=== PATIENT | female | born 1960 | race Caucasian/White ===

== ENCOUNTER 2019-09-13 11:06 | Emergency (ER) | payer OTHER ==
[~2019-09-13] VITALS: Ht 165.1 cm; Wt 52.2 kg
[2019-09-13] MEDS ORDERED: Percocet 5-3251 EACH PO (12:59)
[2019-09-13] MEDS ORDERED: CYCL10 PO (12:59)
== END 2019-09-13 13:21 | disposition home or self-care (01) ==
LOC: ER 11:06
DX: S16.1XXA Strain of muscle, fascia and tendon at neck level, initial encounter (principal); S40.012A Contusion of left shoulder, initial encounter; Z88.0 Allergy status to penicillin; Z88.5 Allergy status to narcotic agent; F17.200 Nicotine dependence, unspecified, uncomplicated; W01.0XXA Fall on same level from slipping, tripping and stumbling without subsequent striking against object, initial encounter
CPT/HCPCS: 72040; 73000; 73030; 99285-25

== ENCOUNTER 2024-05-29 13:24 | Inpatient (IN) | payer SELFPAY ==
[~2024-05-29] VITALS: Ht 165.1 cm; Wt 48.0 kg
[~2024-05-29 13:24] MED LIST: CYCL10 PO; Percocet 5-3251 EACH PO
[2024-05-29 14:07] LABS: BASOPHILS ABSOLUTE AUTO 0.04 K/mm3 (0.00-0.23); BASOPHILS PERCENT AUTO 1 % (0-2); EOSINOPHILS ABSOLUTE AUTO 0.02 K/mm3 (0.00-0.68); EOSINOPHILS PERCENT AUTO 0 % (0-6); Hematocrit 41.7 % (33.0-51.0); Hemoglobin 13.6 g/dL (11.5-16.0); IMMATURE GRAN ABSOLUTE AUTO 0.03 K/mm3 (0.00-0.10); IMMATURE GRAN PERCENT AUTO 0 % (0-1); LYMPHOCYTES ABSOLUTE AUTO 2.08 K/mm3 (0.84-5.20); LYMPHOCYTES PERCENT AUTO 24 % (21-46); MONOCYTES ABSOLUTE AUTO 0.47 K/mm3 (0.16-1.47); MONOCYTES PERCENT AUTO 6 % (4-13); Mean Corpuscular HGB 31.3 pg (26.0-34.0); Mean Corpuscular HGB Conc 32.6 g/dL (31.5-36.5); Mean Corpuscular Volume 96 fL (80-100); Mean Platelet Volume 9.7 fL (9.1-12.4); NEUTROPHILS ABSOLUTE AUTO 5.93 K/mm3 (1.96-9.15); NEUTROPHILS PERCENT AUTO 69 % (41-73); Platelet Count 322 K/mm3 (150-400); RDW Coefficient Variation 13.3 % (11.7-14.2); RDW Standard Deviation 46.4 fL (35.1-46.3); Red Blood Cell Count 4.35 M/mm3 (3.80-5.20); White Blood Cell Count 8.57 K/mm3 (4.00-11.30)
[2024-05-29 14:48] LABS: Albumin, Blood 3.1 g/dL (3.4-5.0); Albumin/Globulin Ratio 0.6 (0.8-1.8); Bilirubin, Total 0.6 mg/dL (0.1-1.0); Bun/Creatinine Ratio 19.2 (12.0-20.0); Calcium, Blood 8.5 mg/dL (8.5-10.1); Creatinine, Blood 0.68 mg/dL (0.40-1.00); Globulin, Blood 5.2 g/dL (2.2-4.0); Potassium, Blood 3.9 mmol/L (3.5-5.5); Total Protein, Blood 8.3 g/dL (6.4-8.2)
[2024-05-29 16:06] LABS: Influenza A, PCR NEGATIVE (NEGATIVE); Influenza B, PCR NEGATIVE (NEGATIVE); Resp Syncytial Virus, PCR NEGATIVE (NEGATIVE); SARS-Cov-2 (COVID-19) PCR, MMC NEGATIVE (NEGATIVE)
[2024-05-29] MEDS ORDERED: Furosemide 10 MG/ML 4ML Vial IV ONE (18:30)
[2024-05-29] MEDS ORDERED: Ondansetron HCl 2 MG / ML 2ML Vial IV PRN (18:30)
[2024-05-29] MEDS ORDERED: FLU VACC TS2024-25(6MOS UP)/PF 45 MCG/0.5 ML SYRINGE IM SCH (18:30)
[2024-05-29 20:18] VITALS: BP 144/79
[2024-05-29] MEDS ORDERED: Acetaminophen 500 MG Tab PO PRN (22:05)
[2024-05-30] VITALS (7 sets, daily range): BP systolic 115–162; BP diastolic 86–97
[2024-05-30] MEDS ORDERED: Melatonin 5 MG Tablet PO PRN (01:35)
--- NOTE | 2024-05-30 04:27 | NUR ---
PT ADMITTED FROM ED WITH NEW ONSET CHF. L/S DIMINISHED IN LOWER BASES, O2 SATS IN LOW 90'S ON RA. B/P WAS ELEVATED, BUT NOW WNL. TELE IS NSR IN 90'S. RECIEVED IVP LASIX IN ED AND HAD ABOVE AVERAGE UOP. AWAITING ECHO, AND STRESS TEST THIS AM. PAIN NOTED IN LEFT BREAST TO AROUND SIDE, THIS HAS BEEN HAPPENING FOR AWHILE SHE STATES, TYLENOL ADMINISTERED AND KPAD SET UP.
[2024-05-30 06:56] LABS: Anion Gap 8 mmol/L (3-11); Blood Urea Nitrogen 22 mg/dL (8-24); Bun/Creatinine Ratio 31.8 (12.0-20.0); CHOL/HDL RATIO 4.9; CO2, Blood 28 mmol/L (21-32); Calcium, Blood 8.4 mg/dL (8.5-10.1); Chloride, Blood 106 mmol/L (98-108); Cholesterol 190 mg/dL (50-200); Creatinine, Blood 0.69 mg/dL (0.40-1.00); Glomerular Filtration Rate 97 (60-); Glucose, Blood 99 mg/dL (70-99); HDL Cholesterol 39 mg/dL (>39); LDL/HDL RATIO 3.1; Low Density Lipoprotein Chol 123 mg/dL (0-110); Magnesium, Blood 2.1 mg/dL (1.6-2.4); Potassium, Blood 3.5 mmol/L (3.5-5.5); Sodium, Blood 138 mmol/L (136-145); Triglycerides 142 mg/dL (30-160); Very Low Density Lipoprot Chol 28 mg/dL (6-32)
[2024-05-30] MEDS ORDERED: Furosemide 10 MG/ML 4ML Vial IV SCH (09:00)
[2024-05-30] MEDS ORDERED: Enoxaparin 40 MG/0.4 ML SYR SC SCH (09:00)
[2024-05-30] MEDS ORDERED: Metoprolol Tartrate 25 MG Tab PO SCH (10:00)
[2024-05-30] MEDS ORDERED: HYDROcodone 5-APAP 325 TAB PO ONE (10:20)
--- NOTE | 2024-05-30 10:47 | NUR ---
AT 1036 THIS RN RECIEVED CALL FROM [employer] NOTIFYING RN PT HAD A 6 BEAT RUN OF ACCELERATED IDIOVENTRICULAR. PT DENIES FEELING ANY WORSENING CHEST PAIN/PRESSURE FROM WHAT SHE HAS BEEN EXPERIENCING. PT BP 140/90. SHE DENIES HEART PALPITATIONS, SOB, OR ANY OTHER DISTRESS. AT APPROX 1045 THIS RN RECHECKED TELE STRIP AND PT RETURNED TO SINUS RHYTHM @ 84. THIS RN ATTEMPTED TO NOTIFY PROVIDER BUT NO ANSWER, PROVIDER NOT IN USUAL OFFICE WHEN RN ATTEMPTED TO VERBALLY UPDATE.
[2024-05-30 14:27] LABS: Source, Urine Clean Catch
[2024-05-30 14:37] LABS: Appearance, Urine Clear (Clear); Bilirubin, Urine Neg (Neg); Blood, Urine 1+ (Neg); Color, Urine Yellow (P-Yellow); Glucose Qualitative, Urine Neg (Neg); Ketones, Urine Neg (Neg); Leukocyte Esterase, Urine 2+ (Neg); Nitrite, Urine Neg (Neg); Protein, Urine 3+ (Neg); Urobilinogen, Urine NORM (Normal)
[2024-05-30 14:48] LABS: White Blood Cells, Urine 25-50 /hpf (0-5)
[2024-05-30 14:49] LABS: Bacteria Few /hpf; Mucus Light (0-Heavy); Squamous Epithelial Cells Few /hpf (Few); Transitional Epithelial Cells Few /hpf (0-Rare)
[2024-05-30] MEDS ORDERED: HYDROcodone 5-APAP 325 TAB PO PRN (16:00)
--- NOTE | 2024-05-30 18:46 | NUR ---
SHIFT SUMMARY A/Ox4, REMAINS INDEPENDENT IN ROOM, ABLE TO MAKE NEEDS/CONCERNS KNOWN. VITALS STABLE, TELE IN PLACE - SR @ 84. REPORT OF 6 BEAT RUN OF ACCELERATED IDIOVENTRICULAR - EKG COMPLETED AND WNL. PT REPORTS NEW ONSET LEFT FLANK PAIN - UA c CULTURE COMPLETED AND SENT TO LAB. ECHO COMPLETED. NORCO 5/325 AVAILABLE Q6H FOR PAIN, EFFECTIVE IN MANAGING PT LEFT CHEST/BACK PAIN AND K PAD HELPS WITH L FLANK PAIN. FAIR APPETITE. PT CURRENTLY RESTING IN BED WITH BED IN LOWEST POSITION AND CALL LIGHT WITHIN REACH - PT USES CALL LIGHT APPROPRIATELY.
[2024-05-31] MEDS ORDERED: CefTRIAXone Sodium 1,000 MG in NS 100 ML IV SCH (00:19)
[2024-05-31] MEDS ORDERED: NS 250 ML IV PRN (00:25)
[2024-05-31 03:07] VITALS: BP 149/93
[2024-05-31 06:37] LABS: BASOPHILS ABSOLUTE AUTO 0.02 K/mm3 (0.00-0.23); BASOPHILS PERCENT AUTO 0 % (0-2); EOSINOPHILS ABSOLUTE AUTO 0.01 K/mm3 (0.00-0.68); EOSINOPHILS PERCENT AUTO 0 % (0-6); Hematocrit 43.2 % (33.0-51.0); Hemoglobin 14.1 g/dL (11.5-16.0); IMMATURE GRAN ABSOLUTE AUTO 0.03 K/mm3 (0.00-0.10); IMMATURE GRAN PERCENT AUTO 0 % (0-1); LYMPHOCYTES ABSOLUTE AUTO 1.75 K/mm3 (0.84-5.20); LYMPHOCYTES PERCENT AUTO 20 % (21-46); MONOCYTES ABSOLUTE AUTO 0.61 K/mm3 (0.16-1.47); MONOCYTES PERCENT AUTO 7 % (4-13); Mean Corpuscular HGB 30.6 pg (26.0-34.0); Mean Corpuscular HGB Conc 32.6 g/dL (31.5-36.5); Mean Corpuscular Volume 94 fL (80-100); Mean Platelet Volume 10.2 fL (9.1-12.4); NEUTROPHILS ABSOLUTE AUTO 6.35 K/mm3 (1.96-9.15); NEUTROPHILS PERCENT AUTO 72 % (41-73); Platelet Count 352 K/mm3 (150-400); RDW Coefficient Variation 13.4 % (11.7-14.2); RDW Standard Deviation 45.2 fL (35.1-46.3); Red Blood Cell Count 4.61 M/mm3 (3.80-5.20); White Blood Cell Count 8.77 K/mm3 (4.00-11.30)
[2024-05-31 07:03] LABS: Calcium, Blood 8.7 mg/dL (8.5-10.1); Creatinine, Blood 0.74 mg/dL (0.40-1.00); Potassium, Blood 3.7 mmol/L (3.5-5.5)
[2024-05-31 07:18] VITALS: BP 132/72
[2024-05-31] MEDS ORDERED: Folic Acid 1 MG TAB PO SCH (09:00)
[2024-05-31] MEDS ORDERED: Potassium Chloride 20 MEQ TabCR PO ONE (09:00)
[2024-05-31] MEDS ORDERED: Empagliflozin 10 MG TAB PO SCH (09:00)
[2024-05-31] MEDS ORDERED: Sacubitril/Valsartan 24 MG-26 MG Tab PO SCH (09:00)
[2024-05-31] MEDS ORDERED: Thiamine HCl 100 MG Tab PO SCH (09:00)
[2024-05-31] MEDS ORDERED: MASOPHEN500 M1 PO (11:57)
[2024-05-31] MEDS ORDERED: JARDIANCE10 MG PO (11:58)
[2024-05-31] MEDS ORDERED: FOLI1 PO (11:58)
[2024-05-31] MEDS ORDERED: Norco 5-325 Ta1 EACH PO (11:59)
[2024-05-31] MEDS ORDERED: METO25 PO (12:04)
[2024-05-31] MEDS ORDERED: ENTRESTO 24 MG1 EACH PO (12:05)
[2024-05-31] MEDS ORDERED: CEPHALEXIN500 M2 PO (12:09)
[2024-05-31] MEDS ORDERED: ALPR.25 PO (12:09)
[2024-05-31] MEDS ORDERED: LASIX20 M2 PO (12:11)
[2024-05-31] MEDS ORDERED: SENN187 PO (12:12)
[2024-05-31] MEDS ORDERED: ALDACTONE25 MG PO (12:12)
--- NOTE | 2024-05-31 14:42 | NUR ---
NEW RX, ENTRESTO. CARE MANAGEMENT CALLED THIS PC RN FOR ASSISTANCE LOCATING SOME FORM OF DISCOUNT OPTIONS FOR ENTRESTO. LOCATED A FREE 30 DAY TRIAL COUPON FOR ENTRESTO ON [employer]. PRINTED DISCOUNT CARD FOR PT AND INFORMATION ON ENROLLING IN THEIR DISCOUNT PROGRAM. MET WITH PT AND HER SISTER IN PT'S ROOM. EXPLAINED THE PROGRAM TO THEM. ENCOURAGED PT TO KEEP HER APPT WITH DEPUTY BAILIFF AND CALL THEM IF A SOONER APPT IS NEEDED. GENTLE SUPPORTIVE EDUCATION RE: CHF S/SX TO BE AWARE OF. POSSIBLE NEW LIMITATIONS FOR CONSERVATION OF ENERGY. THERAPUTIC LISTENING PROVIDED TO PT AND HER SISTER. PT'S SPOUSE IS IN AN ASSISTED LIVING FACILITY FOR DEMENTIA. BEING PRESENT FOR HER IS VERY IMPORTANT TO PT.
--- NOTE | 2024-05-31 15:15 | NUR ---
CONSULTED WITH PALLAITIVE CARE ABOUT NEW PRESCRIPTIONS. JUSTIN CONTACTED CARDIOLOGY MD SHEREE INFORMED US TO HOLD JARDIANCE UNTIL PT FOLLOW UP APPOINTMENT.
--- NOTE | 2024-05-31 16:22 | NUR ---
DISCHARGE 1530 PT AOX4, COOPERATIVE, ABLE TO MAKE NEEDS KNOWN. IV AND TELE DC'D BY THIS RN WITHOUT ACUTE EVENTS. THIS RN WENT OVER DC PAPERWORK WITH PT AND FAMILY MEMBER. PT PACKED BELONGINGS AND DC PAPERWORK AND TOOK WITH THEM. PT DID CHOOSE TO AMBULATE DOWN TO CARE EVEN THOUGH WHEELCHAIR WAS OFFERED TO THEM TWICE.
== END 2024-05-31 15:33 | disposition home health service (06) | DRG 291 ==
LOC: ER 13:24 → MEDS 13:25 → ERHOLD 13:25 → MEDS 20:06
PROVIDERS: Emergency Medicine; Internal Medicine; Nurse Practitioner Acute Care; Student in an Organized Health Care Education/Training Program; ADMIT Student in an Organized Health Care Education/Training Program
DX: I11.0 Hypertensive heart disease with heart failure (principal); I50.21 Acute systolic (congestive) heart failure; N39.0 Urinary tract infection, site not specified; F17.210 Nicotine dependence, cigarettes, uncomplicated; F12.10 Cannabis abuse, uncomplicated; J43.9 Emphysema, unspecified; F41.9 Anxiety disorder, unspecified; Z88.0 Allergy status to penicillin; Z88.5 Allergy status to narcotic agent; Z79.891 Long term (current) use of opiate analgesic; Z79.899 Other long term (current) drug therapy
CPT/HCPCS: 0241U; 36415; 71046; 71260; 80048; 80053; 80061; 81001; 83036; 83735; 83880; 84443; 84484; 85025; 85379; 87086; 93005; 93010; 93306; 94761; 96372; 96374; 96375; 96376; 99285-25; A9270; G0378; J0696; J1650; J1940; J2405; J7050; Q9967